=== PATIENT | female | born 1975 | race Caucasian/White ===

== ENCOUNTER 2019-02-17 08:00 | Outpatient (CLI) | payer OTHER ==
[2019-02-17 13:20] LABS: BASOPHILS # (AUTO) 0.1 10^3/uL (0.0-0.1); BASOPHILS % (AUTO) 0.9 %; EOSINOPHILS # (AUTO) 0.2 10^3/uL (0.0-0.7); EOSINOPHILS % (AUTO) 3.4 %; HGB - HEMOGLOBIN 14.2 g/dL (12.0-16.0); LYMPHOCYTES # (AUTO) 2.2 10^3/uL (1.5-3.5); LYMPHOCYTES % (AUTO) 31.3 %; MEAN CORPUSCULAR HEMOGLOBIN 31.3 pg (27.0-31.0); MEAN CORPUSCULAR HGB CONC 33.5 g/dL (32.0-36.0); MEAN CORPUSCULAR VOLUME 93.6 fL (81.0-99.0); MEAN PLATELET VOLUME 8.3 fL (7.9-10.8); MONOCYTES # (AUTO) 0.4 10^3/uL (0.0-1.0); MONOCYTES % (AUTO) 5.4 %; NEUTROPHILS # (AUTO) 4.1 10^3/uL (1.5-6.6); PLT - PLATELET COUNT 251 10^3/uL (130-450); RED BLOOD COUNT 4.53 10^6/uL (4.20-5.40)
[2019-02-17 13:31] LABS: BUN - BLOOD UREA NITROGEN 11 mg/dL (6-20); CALCIUM 8.9 mg/dL (8.5-10.3); CARBON DIOXIDE - CO2 26 mmol/L (21-32); CHLORIDE 103 mmol/L (101-111); CHOL/HDL RATIO 5.8 (<4.4); CHOLESTEROL 220 mg/dL; GFR - MDRD 61 (>89); GLUCOSE 140 mg/dL (70-100); HDL CHOLESTEROL 38 mg/dL; LDL CHOLESTEROL,CALCULATED 137 mg/dL; LDL/HDL RATIO 3.6 (<4.4); SODIUM 138 mmol/L (135-145); VLDL CHOLESTEROL 45 mg/dL
[2019-02-17 13:40] LABS: HB2 TOTAL 15.1 g/dL; HEMOGLOBIN A1C 0.65 g/dL; HEMOGLOBIN A1C % 6.1 % (4.6-6.2)
[2019-02-17 13:43] LABS: THYROID STIMULATING HORMONE 1.05 uIU/mL (0.34-5.60)
[2019-02-17 13:44] LABS: FREE T4 (FREE THYROXINE) 1.15 ng/dL (0.58-1.64)
== END 2019-02-17 23:59 | disposition home or self-care (01) ==
LOC: LAB.N 08:00
PROVIDERS: ATTEND Physician Assistant Medical
DX: Z00.00 Encounter for general adult medical examination without abnormal findings (principal); E03.9 Hypothyroidism, unspecified
CPT/HCPCS: 36415; 80048; 80061; 83036; 83721; 84439; 84443; 85025

== ENCOUNTER 2019-03-02 08:28 | Outpatient (CLI) | payer BC, OTHER ==
--- NOTE | 2019-03-08 15:51 | Mammography Report ---
Reason: SCREENING MAMMO Procedure Date: 03/02/2019 Accession Number: [id number] / [id number] Procedure: MGN - Screening Mammo Dig Bilat CPT Code: FULL RESULT: EXAM: Screening Mammo Dig Bilat DATE: 03/02/2019 8:49 AM CLINICAL HISTORY: Screening examination. TECHNIQUE: (B) - Bilateral CC and MLO views were obtained. COMPARISON: None PARENCHYMAL PATTERN: (A) - The breasts demonstrate scattered fibroglandular densities bilaterally. FINDINGS: There are no suspicious masses, calcifications, or areas of distortion. IMPRESSION: Negative examination. BI-RADS category 1. RECOMMENDATION: (ANNUAL) - Recommend routine annual screening mammography. BI-RADS CATEGORY: (1) - Negative. STANDARD QUALIFYING STATEMENTS: 1. This examination was reviewed with the aid of Computer-Aided Detection (CAD). 2. A negative or benign imaging report should not preclude biopsy if clinically suspicious findings are present. 3. Dense breasts may obscure an underlying neoplasm. 4. This examination was reviewed without the aid of 3D breast imaging (tomosynthesis).
== END 2019-03-02 08:29 | disposition home or self-care (01) ==
LOC: DI.N 08:28
PROVIDERS: ATTEND Physician Assistant Medical
DX: Z12.31 Encounter for screening mammogram for malignant neoplasm of breast (principal)
CPT/HCPCS: 77067

== ENCOUNTER 2019-09-08 10:31 | Outpatient (CLI) | payer BC | END 2019-09-08 10:32 | disposition home or self-care (01) | LOC: NS 10:31 | PROVIDERS: ATTEND Physician Assistant Medical | DX: Z71.3 Dietary counseling and surveillance (principal); R73.03 Prediabetes; E78.5 Hyperlipidemia, unspecified; E66.9 Obesity, unspecified; Z68.37 Body mass index [BMI] 37.0-37.9, adult | CPT/HCPCS: 97802 ==

== ENCOUNTER 2019-09-26 15:29 | Outpatient (CLI) | payer BC | END 2019-09-26 15:30 | disposition home or self-care (01) | LOC: NS 15:29 | PROVIDERS: ATTEND Physician Assistant Medical | DX: Z71.3 Dietary counseling and surveillance (principal); E78.5 Hyperlipidemia, unspecified; R73.03 Prediabetes; E66.9 Obesity, unspecified; Z68.37 Body mass index [BMI] 37.0-37.9, adult | CPT/HCPCS: 97803 ==

== ENCOUNTER 2020-05-30 08:58 | Outpatient (CLI) | payer BC ==
[2020-05-30 11:43] LABS: BASOPHILS # (AUTO) 0.1 10^3/uL (0.0-0.1); BASOPHILS % (AUTO) 0.9 %; EOSINOPHILS # (AUTO) 0.3 10^3/uL (0.0-0.7); EOSINOPHILS % (AUTO) 3.4 %; HGB - HEMOGLOBIN 14.6 g/dL (12.0-16.0); LYMPHOCYTES # (AUTO) 2.4 10^3/uL (1.5-3.5); LYMPHOCYTES % (AUTO) 30.4 %; MEAN CORPUSCULAR HEMOGLOBIN 30.9 pg (27.0-31.0); MEAN CORPUSCULAR HGB CONC 32.6 g/dL (32.0-36.0); MEAN CORPUSCULAR VOLUME 94.9 fL (81.0-99.0); MEAN PLATELET VOLUME 9.6 fL (7.9-10.8); MONOCYTES # (AUTO) 0.5 10^3/uL (0.0-1.0); MONOCYTES % (AUTO) 5.9 %; NEUTROPHILS # (AUTO) 4.7 10^3/uL (1.5-6.6); NEUTROPHILS % (AUTO) 58.9 %; PLT - PLATELET COUNT 278 10^3/uL (130-450); RED BLOOD COUNT 4.72 10^6/uL (4.20-5.40); RED CELL DISTRIBUTION WIDTH 12.9 % (12.0-15.0)
[2020-05-30 12:08] LABS: ALBUMIN 4.1 g/dL (3.2-5.5); ALBUMIN/GLOBULIN RATIO 1.2 (1.0-2.2); ALKALINE PHOSPHATASE 67 IU/L (42-121); ALT ALANINE AMINOTRANSFERASE 34 IU/L (10-60); AST ASPARTATE AMINOTRANSFERASE 29 IU/L (10-42); BILIRUBIN,TOTAL 0.3 mg/dL (0.2-1.0); BUN - BLOOD UREA NITROGEN 9 mg/dL (6-20); CALCIUM 9.2 mg/dL (8.5-10.3); CARBON DIOXIDE - CO2 26 mmol/L (21-32); CHLORIDE 103 mmol/L (101-111); CHOL/HDL RATIO 5.8 (<4.4); CHOLESTEROL 216 mg/dL; CREATININE 0.9 mg/dL (0.4-1.0); GLUCOSE 119 mg/dL (70-100); HDL CHOLESTEROL 37 mg/dL; LDL CHOLESTEROL,CALCULATED 142 mg/dL; LDL/HDL RATIO 3.8 (<4.4); SODIUM 136 mmol/L (135-145); TOTAL PROTEIN 7.4 g/dL (6.7-8.2); VLDL CHOLESTEROL 37 mg/dL
[2020-05-30 12:49] LABS: HEMOGLOBIN A1C 0.64 g/dL; HEMOGLOBIN A1C % 6.1 % (4.6-6.2)
== END 2020-05-30 23:59 | disposition home or self-care (01) ==
LOC: LAB.WCP 08:58
PROVIDERS: ATTEND Physician Assistant
DX: R73.03 Prediabetes (principal); E03.9 Hypothyroidism, unspecified; E78.5 Hyperlipidemia, unspecified
CPT/HCPCS: 36415; 80053; 80061; 83036; 83721; 84443; 85025

== ENCOUNTER 2020-07-04 07:00 | Outpatient (CLI) | payer BC | END 2020-07-04 07:01 | disposition home or self-care (01) | LOC: LAB.R 07:00 | PROVIDERS: ATTEND Physician Assistant | DX: N39.0 Urinary tract infection, site not specified (principal) | CPT/HCPCS: 36415; 81599; 86592; 86695; 86696; 86803; 87077; 87086; 87181; 87389; 87491; 87591; 87661 ==

== ENCOUNTER 2020-07-04 15:42 | Outpatient (CLI) | payer BC ==
[2020-07-05 12:34] LABS: HIV AG/AB 4TH GEN NON-REACTIVE (NON-REACTIVE)
[2020-07-05 13:59] LABS: HEPATITIS C ANTIBODY NON-REACTIVE (NON-REACTIVE)
[2020-07-06 12:42] LABS: HSV 1 IGG TYPE SPECIFIC AB 33.7 index; HSV 2 IGG TYPE SPECIFIC AB 9.7 index
== END 2020-07-04 23:59 | disposition home or self-care (01) ==
LOC: LAB.WCP 15:42
PROVIDERS: ATTEND Physician Assistant
DX: Z11.3 Encounter for screening for infections with a predominantly sexual mode of transmission (principal); N39.0 Urinary tract infection, site not specified
CPT/HCPCS: 36415; 81599; 86695; 86696; 86803; 87086; 87389; 87491; 87591; 87661

== ENCOUNTER 2020-07-05 05:30 | Outpatient (CLI) | payer BC ==
[2020-07-05 21:11] LABS: TRICHOMONAS VAGINALIS DNA NEGATIVE (NEGATIVE)
== END 2020-07-05 23:59 | disposition home or self-care (01) ==
LOC: LAB.WCP 05:30
PROVIDERS: ATTEND Physician Assistant
DX: Z11.3 Encounter for screening for infections with a predominantly sexual mode of transmission (principal)
CPT/HCPCS: 87491; 87591; 87661

== ENCOUNTER 2020-07-05 07:00 | Outpatient (CLI) | payer BC | END 2020-07-05 23:59 | disposition home or self-care (01) | LOC: LAB.R 07:00 | PROVIDERS: ATTEND Physician Assistant | DX: R19.7 Diarrhea, unspecified (principal) | CPT/HCPCS: 81599; 87045; 87046; 87177; 87209; 87427; 87493 ==

== ENCOUNTER 2020-09-10 08:58 | Outpatient (CLI) | payer BC | END 2020-09-10 23:59 | disposition home or self-care (01) | LOC: LAB.R 08:58 | PROVIDERS: ATTEND Physician Assistant | DX: R19.7 Diarrhea, unspecified (principal) | CPT/HCPCS: 81599; 87045; 87046; 87177; 87209; 87427; 87493 ==

== ENCOUNTER 2021-06-14 08:00 | Outpatient (CLI) | payer BC ==
[2021-06-14 12:29] LABS: BILIRUBIN,URINE NEGATIVE (NEGATIVE); GLUCOSE, URINE (UA) NEGATIVE (NEGATIVE); KETONES,URINE (UA) NEGATIVE (NEGATIVE); LEUKOCYTE ESTERASE, URINE NEGATIVE (NEGATIVE); NITRITE,URINE NEGATIVE (NEGATIVE); OCCULT BLOOD,URINE NEGATIVE (NEGATIVE); PROTEIN,URINE NEGATIVE (NEGATIVE); UROBILINOGEN,URINE 0.2 (NORMAL) E.U./dL (NORMAL)
[2021-06-14 12:31] LABS: ALBUMIN 4.3 g/dL (3.2-5.5); ALBUMIN/GLOBULIN RATIO 1.3 (1.0-2.2); ALKALINE PHOSPHATASE 79 IU/L (42-121); ALT ALANINE AMINOTRANSFERASE 48 IU/L (10-60); AST ASPARTATE AMINOTRANSFERASE 39 IU/L (10-42); BILIRUBIN,TOTAL 0.7 mg/dL (0.2-1.0); BUN - BLOOD UREA NITROGEN 7 mg/dL (6-20); CALCIUM 9.3 mg/dL (8.5-10.3); CARBON DIOXIDE - CO2 25 mmol/L (21-32); CHLORIDE 103 mmol/L (101-111); CHOL/HDL RATIO 5.5 (<4.4); CHOLESTEROL 262 mg/dL; GFR - MDRD 60 (>89); GLUCOSE 125 mg/dL (70-100); HDL CHOLESTEROL 48 mg/dL; LDL CHOLESTEROL,CALCULATED 185 mg/dL; LDL/HDL RATIO 3.9 (<4.4); POTASSIUM 3.9 mmol/L (3.5-5.0); SODIUM 138 mmol/L (135-145); TOTAL PROTEIN 7.6 g/dL (6.7-8.2); TRIGLYCERIDES 147 mg/dL; VLDL CHOLESTEROL 29 mg/dL
[2021-06-14 12:34] LABS: CLARITY,URINE CLOUDY (CLEAR); ESTIMATED AVERAGE GLUCOSE 137 mg/dL (70-100); HEMOGLOBIN A1c% 6.4 % (4.27-6.07)
[2021-06-14 12:40] LABS: BASOPHILS # (AUTO) 0.1 10^3/uL (0.0-0.1); BASOPHILS % (AUTO) 1.3 %; EOSINOPHILS # (AUTO) 0.2 10^3/uL (0.0-0.7); EOSINOPHILS % (AUTO) 3.5 %; HCT - HEMATOCRIT 44.3 % (37.0-47.0); HGB - HEMOGLOBIN 14.5 g/dL (12.0-16.0); LYMPHOCYTES # (AUTO) 1.9 10^3/uL (1.5-3.5); LYMPHOCYTES % (AUTO) 31.2 %; MEAN CORPUSCULAR HEMOGLOBIN 31.9 pg (27.0-31.0); MEAN CORPUSCULAR HGB CONC 32.7 g/dL (32.0-36.0); MEAN CORPUSCULAR VOLUME 97.4 fL (81.0-99.0); MEAN PLATELET VOLUME 9.6 fL (7.9-10.8); MONOCYTES # (AUTO) 0.4 10^3/uL (0.0-1.0); MONOCYTES % (AUTO) 6.6 %; NEUTROPHILS # (AUTO) 3.5 10^3/uL (1.5-6.6); NEUTROPHILS % (AUTO) 56.3 %; PLT - PLATELET COUNT 263 10^3/uL (130-450); RED BLOOD COUNT 4.55 10^6/uL (4.20-5.40); RED CELL DISTRIBUTION WIDTH 13.1 % (12.0-15.0); THYROID STIMULATING HORMONE 21.19 uIU/mL (0.34-5.60); WHITE BLOOD COUNT 6.2 x10^3/uL (4.8-10.8)
[2021-06-14 12:42] LABS: FREE T4 (FREE THYROXINE) 0.52 ng/dL (0.58-1.64)
[2021-06-14 13:32] LABS: BACTERIA,URINE Rare /HPF (None Seen); RBC,URINE None Seen /HPF (0-5); SQUAMOUS EPITHELIAL CELL,UR MOD Squamous (<= Few); WBC,URINE 0-3 /HPF (0-5)
[2021-06-14 13:33] LABS: AMORPHOUS SEDIMENT,UR Marked /LPF
== END 2021-06-14 23:59 | disposition home or self-care (01) ==
LOC: LAB.WCP 08:00
PROVIDERS: ATTEND Nurse Practitioner
DX: Z00.01 Encounter for general adult medical examination with abnormal findings (principal); E78.5 Hyperlipidemia, unspecified; E03.9 Hypothyroidism, unspecified; R73.03 Prediabetes
CPT/HCPCS: 36415; 80053; 80061; 81001; 83036; 83721; 84439; 84443; 85025; 87086

== ENCOUNTER 2021-08-21 15:19 | Outpatient (CLI) | payer BC ==
--- NOTE | 2021-08-22 10:47 | Mammography Report ---
BILATERAL DIGITAL SCREENING MAMMOGRAM 3D/2D: 08/21/2021 CLINICAL: Routine screening. Comparison is made to exams dated: 03/02/2019 mammogram - [facility] and 02/28/2016 m ammogram - [facility]. The tissue of both breasts is heterogeneously dense. This may l ower the sensitivity of mammography. No significant masses, calcifications, or other findings are seen in either breast. There has been no significant interval change. IMPRESSION: NEGATIVE There is no mammographic evidence of malignancy. A 1 year screening mammogram is recommended. This exam was interpreted at Station ID: [id number]. NOTE: For mammograms, a report in lay terms will be sent to the patient. Approximately 15% of breast malignancies will not be visualized mammographically. In the management of a palpable breast mass, a negative mammogram must not discourage biopsy of a clinically suspicious lesion. Electronically Signed By: Ladarius Youssef acr/penrad:08/21/2021 16:57:43 ACR BI-RADS Category 1: Negative [id number] PARENCHYMAL PATTERN: (D) - The breast(s) demonstrate(s) heterogeneously dense fibroglandular herman shaikh. BI-RADS CATEGORY: (1) - 1 RECOMMENDATION: (ANNUAL) - Recommend routine annual screening mammography. [id number] 1 year screening LATERALITY: (B)
== END 2021-08-21 15:20 | disposition home or self-care (01) ==
LOC: DI.N 15:19
PROVIDERS: ATTEND Nurse Practitioner
DX: Z12.31 Encounter for screening mammogram for malignant neoplasm of breast (principal)

== ENCOUNTER 2021-09-20 12:47 | Outpatient (CLI) | payer BC | END 2021-09-20 12:48 | disposition home or self-care (01) | LOC: LAB 12:47 | PROVIDERS: ATTEND Internal Medicine Gastroenterology | DX: A04.72 Enterocolitis due to Clostridium difficile, not specified as recurrent (principal) | CPT/HCPCS: 83630; 87493 ==

== ENCOUNTER 2021-11-19 10:53 | Day surgery (SDC) | payer BC ==
[2021-11-19] MEDS ORDERED: PROPOFOL 500 MG/50 ML 500 MG/50 ML VIAL ONE (11:33)
--- NOTE | 2021-11-19 11:39 | ANESTHESIA ---
Pre-Anesthesia VS, & Labs - Diagnosis abdominal pain - Procedure colonoscopy Height: 5 ft 6 in Weight (kg): 105.9 kg Body Mass Index: 37.6 BMI Classification: Obese - NPO >8 hours - Is Patient ?: No (pt refused hcg, denies potential) Home Medications and Allergies Home Medications: Ambulatory Orders Levothyroxine [Synthroid] 75 mcg PO QDAC 11/18/21 buPROPion [Wellbutrin Xl] 150 mg PO DAILY 11/18/21 Levothyroxine [Synthroid] 75 mcg PO QDAC 11/18/21 buPROPion [Wellbutrin Xl] 150 mg PO DAILY 11/18/21 Allergies/Adverse Reactions: Allergies Allergy/AdvReac Type Severity Reaction Status Date / Time salmon oil Allergy Unknown Verified 11/19/21 11:22 Anes History & Medical History - Anesthetic History Anesthesia Complications: reports: No previous complications - Medical History Cardiovascular: reports: None Pulmonary: reports: None Endocrine/Autoimmune: reports: HyPOthyroidism History of Cancer?: No - Surgical History General: reports: Cholecystectomy Orthopedic: reports: Other (foot) Exam General: Alert, Oriented x3 Dental: WNL Mallampati classification: II Thyromental Distance: greater than 6 cm Respiratory: Lungs clear Cardiovascular: Regular rate Plan Anesthesia Type: Total IV Consent for Procedure(s) Verified and Reviewed: Yes Code Status: Attempt Resuscitation ASA classification: 2-Mild systemic disease Is this case an emergency?: No
[2021-11-19] MEDS ORDERED: PROPOFOL 200 MG/20 ML VIAL IVP ONE (12:11)
[2021-11-19] MEDS ORDERED: LACTATED RINGERS 1,000 ML IV ONE (12:15)
[2021-11-19 12:31] VITALS: BP 130/94
--- NOTE | 2021-11-19 14:39 | ANESTHESIA POST OP EVALUATION ---
Anesthesia Post Eval - Post Anesthesia Eval Vitals: Last Vital Signs Temp 36.8 C 11/19/21 12:15 Pulse 88 11/19/21 12:30 Resp 12 11/19/21 12:30 BP 130/94 H 11/19/21 12:30 Pulse Ox 98 11/19/21 12:30 CV Function Including HR & BP: Stable Pain Control: Satisfactory Nausea & Vomiting: Negative Mental Status: Baseline Respiratory Status: Airway Patent Hydration Status: Satisfactory Anesthesia Complications: None
== END 2021-11-19 10:54 | disposition home or self-care (01) ==
LOC: SDS 10:53
PROVIDERS: ATTEND Surgery
PROC: 0DBE8ZX Excision of Large Intestine, Via Natural or Artificial Opening Endoscopic, Diagnostic (ICD-10-PCS; 2021-11-19)
PROC: 0DBP8ZX Excision of Rectum, Via Natural or Artificial Opening Endoscopic, Diagnostic (ICD-10-PCS; 2021-11-19)
PROC: 0DBB8ZX Excision of Ileum, Via Natural or Artificial Opening Endoscopic, Diagnostic (ICD-10-PCS; 2021-11-19)
PROC: 0DBH8ZX Excision of Cecum, Via Natural or Artificial Opening Endoscopic, Diagnostic (ICD-10-PCS; principal; 2021-11-19 12:15)
DX: R10.33 Periumbilical pain (principal); R19.7 Diarrhea, unspecified; K64.8 Other hemorrhoids; K62.1 Rectal polyp; R06.83 Snoring; E66.9 Obesity, unspecified; F17.210 Nicotine dependence, cigarettes, uncomplicated; Z68.39 Body mass index [BMI] 39.0-39.9, adult
CPT/HCPCS: 45380; 81599; 83630; 87015; 87177; 87209; 87272; 87329; 87493; J7120; 87045; 87046

== ENCOUNTER 2021-12-13 13:38 | Outpatient (CLI) | payer BC | END 2021-12-13 13:39 | disposition home or self-care (01) | LOC: LAB.N 13:38 | PROVIDERS: ATTEND Nurse Practitioner | DX: M25.552 Pain in left hip (principal) | CPT/HCPCS: 36415; 85651; 86140 ==

== ENCOUNTER 2021-12-13 13:44 | Outpatient (CLI) | payer BC ==
--- NOTE | 2021-12-13 17:14 | XRAY Report ---
PROCEDURE: Hip w/Pelvis 2-3V LT INDICATIONS: LEFT HIP JOINT PAIN TECHNIQUE: AP pelvis with lateral view(s) of the left hip(s). COMPARISON: None FINDINGS: Bones: No fractures or dislocations. Pelvic ring appears intact. No suspicious bony lesions. Soft tissues: The visualized bowel gas pattern is normal. No suspicious soft tissue calcifications. IMPRESSION: No visualized acute fracture or dislocation. However, occult injury cannot be excluded. Recommend short interval imaging follow-up in 7-10 days as clinically indicated for additional evalua tion. Reviewed by: Summer Conner MD on 12/13/2021 5:13 PM PST Approved by: Summer Conner MD on 12/13/2021 5:13 PM PST Station ID: [id number]
== END 2021-12-13 13:45 | disposition home or self-care (01) ==
LOC: DI.N 13:44
PROVIDERS: ATTEND Nurse Practitioner
DX: M25.552 Pain in left hip (principal)
CPT/HCPCS: 36415; 85651; 86140

== ENCOUNTER 2022-08-04 08:00 | Outpatient (CLI) | payer BC | END 2022-08-04 23:59 | disposition home or self-care (01) | LOC: LAB.N 08:00 | PROVIDERS: ATTEND Physician Assistant | DX: L72.0 Epidermal cyst (principal) | CPT/HCPCS: 87070; 87205 ==

== ENCOUNTER 2022-08-15 08:28 | Outpatient (CLI) | payer BC ==
[2022-08-15 09:11] VITALS: BP 136/78
--- NOTE | 2022-08-15 09:11 | SLEEP CARE CONSULTATION ---
Information from patient questionnaire entered by Ashley Harris. I have reviewed and concur with the information entered by Ashley Harris. This document represents the service I personally performed and the decisions made by me, Mami Garzon ARNP. History of Present Illness Service Date and Time: 08/15/2022827 Reason for Visit: New patient Chief Complaint: reports: Insomnia, Unrefreshed sleep, Snoring Date of Onset: 9 months Usual bedtime: 9 pm Time it takes to fall asleep: 2 hours Snores at night: Yes Observed to quit breathing while asleep: No Sleeps alone due to snoring: No Number of times waking at night: 2 Reasons for waking at night: reports: Bathroom. denies: Choking, Gasping for air Toss, Turn, or Twitch while sleeping: Yes Recalls having dreams: Yes Usually gets out of bed at: 6 am Feels refreshed in the morning: Yes (sometimes not) Morning headache: No Sleepy or fatigued during the day: Yes Ever fallen asleep while driving: No Takes day naps: Yes ( mostly) Dreams during day naps: Yes (sometimes) Prior sleep studies: No Additional HPI information: I had the pleasure of seeing AMBER BANKS today regarding the possibility of her having a sleep disorder. Her current complaint is insomnia. She states she loves naps but she has a hard time falling asleep at night. She states it can take 2-3 hours to fall asleep. She will read in bed until able to go to sleep. She has tried 5-6 medications to help her fall asleep and stay asleep but they did not help or have side effects were not good. She sleeps in 3-4 hours increments at a time. She states her son tells her she snores but no pauses in breathing. She sometimes will feel "wired" and ready to go with only 3 hours sleep. She thinks most of the time she wakes up feeling rested but after examining her sleep diary she was not as rested in the last week. Patient has back pain from recent "cysts" on her back requiring surgery yesterday. She states she will wake up a couple times a night and usually can go back to sleep. She denies racing thoughts keeping her awake. She denies waking up choking or gasping for air. 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 Patient is Single and lives in . Have you smoked in the past 12 months: Yes Cigarettes per day (20/pack): 20 Years of smokin Smoking Pack Years: 30.0 Alcohol use: Yes Alcohol amount and frequency: rarely Caffeine use: Yes Caffeine amount and frequency: 1 cup coffee daily Family History Family history of sleep disordered breathing: No Allergies and Home Medications Known drug allergies: No Drug allergies reviewed: Yes (NKDA) Home medication list reviewed: Yes Allergy and home medication list: Allergies salmon oil Allergy (Verified 11/19/21 11:22) Unknown Medications: Levothyroxine 0.150 mg Venlafaxine 225 mg Metformin ER 500 mg, 1-2 times a day Review of Systems Cardiovascular: denies: high blood pressure Gastrointestinal: denies: heartburn Neurological: denies: headaches, head trauma Psychiatric: reports: anxiety, depression Ear/Nose/Throat: denies: tonsillectomy Endocrine: reports: thyroid disease Immunologic: reports: sneezing, allergies to food or environment (salmon oil) Physical Exam Vital signs obtained and entered by: ISHAN LEIGH Blood Pressure: 136/78 (LEFT ARM ) Cuff size: regular Heart Rate: 101 O2 Saturation: 95 Height: 5 ft 6 in Weight: 221 lb Body Mass Index: 35.6 BMI Classification: Obese Neck circumference: 18 (INCHES) Mouth and throat: narrow oropharynx Soft palate: long Hard palate: normal Uvula: normal Uvula visualization: 25% Mallampati Class III Tongue: enlarged in size with teeth bustos on lateral edges Tonsils: small Neck: normal w/o lymphadenopathy or thyromegaly Heart: regular rate and rhythm Lungs: clear bilaterally Impression and Plan 1. Suspected Obstructive Sleep Apnea-Hypopnea Syndrome, as suggested by a history of irregular snoring, unrefreshed sleep, and insomnia. Narrow oropharynx and obesity are common predisposing factors for obstructive sleep apnea-hypopnea syndrome. I recommend proceeding to polysomnography to confirm the diagnosis and to assess severity. If the patient has significant sleep disordered breathing, a manual CPAP titration study will also be performed to find the optimal treatment pressure. I informed the patient of what the sleep studies involve and after some discussion, obtained agreement to proceed. The pathophysiology of obstructive sleep apnea-hypopnea syndrome was discussed with the patient and health risks of cardiovascular and cerebrovascular disease if not treated. Risks of drowsy driving discussed in detail and patient advised to avoid long distance driving and to parts puller at the first sign of drowsiness. Patient agreed to plan. * Schedule polysomnography * Avoid long distance driving or driving when feeling sleepy. * Avoid alcohol, sedative and muscle relaxant around bedtime. * Attempt to lose weight. * Review instructions provided by trained office staff on how to prepare for the sleep study. * Return for follow-up after sleep study completed. Counseling Topics: Weight loss health impact Visit Type: In Office Time Spent with Patient (minutes): 30 Provider Statement: I spent 100% of the Face to Face Visit with the patient with greater than 50% spent counseling the patient and coordination of care.
== END 2022-08-15 08:29 | disposition home or self-care (01) ==
LOC: SC 08:28
PROVIDERS: ATTEND Nurse Practitioner Family
DX: G47.00 Insomnia, unspecified (principal); R06.83 Snoring; G47.8 Other sleep disorders; E11.9 Type 2 diabetes mellitus without complications; F32.A Depression, unspecified; F17.210 Nicotine dependence, cigarettes, uncomplicated; E66.9 Obesity, unspecified; Z68.35 Body mass index [BMI] 35.0-35.9, adult
CPT/HCPCS: 99203; 99212

== ENCOUNTER 2022-09-08 09:47 | Outpatient (CLI) | payer BC ==
[2022-09-08 14:00] LABS: ESTIMATED AVERAGE GLUCOSE 123 mg/dL (70-100); HEMOGLOBIN A1c% 5.9 % (4.27-6.07)
== END 2022-09-08 09:48 | disposition home or self-care (01) ==
LOC: LAB.N 09:47
PROVIDERS: ATTEND Nurse Practitioner
DX: E55.9 Vitamin D deficiency, unspecified (principal); E11.9 Type 2 diabetes mellitus without complications
CPT/HCPCS: 36415; 82306; 82652; 83036

== ENCOUNTER 2022-09-16 14:23 | Outpatient (CLI) | payer BC | END 2022-09-16 14:24 | disposition home or self-care (01) | LOC: SC 14:23 | PROVIDERS: ATTEND Nurse Practitioner Family | DX: G47.33 Obstructive sleep apnea (adult) (pediatric) (principal); R09.02 Hypoxemia | CPT/HCPCS: 95806 ==

== ENCOUNTER 2022-10-15 15:31 | Outpatient (CLI) | payer BC ==
--- NOTE | 2022-10-15 15:59 | SLEEP CARE CONSULTATION ---
Information from patient questionnaire entered by Emily Sheriff. I have reviewed and concur with the information entered by Emily Sheriff. This document represents the service I personally performed and the decisions made by me, Mami Garzon ARNP. History of Present Illness Service Date and Time: 10/15/2022 1531 Initial [place] Sleepiness Scale score: 3 (08/14/22) Current [place] Sleepiness Scale score: 5 (10/15/2022) Additional HPI information: AMBER BANKS returns for follow up and results of the recently performed home sleep study. I explained the pathophysiology behind obstructive sleep apnea. We then spent quite a bit of time discussing different treatment options. For mild obstructive sleep apnea, surgery and oral appliance are alternatives to nasal CPAP therapy but in moderate or severe cases, nasal CPAP is the most effective and reliable treatment. I reviewed the impact of weight changes on sleep apnea and strongly recommended losing weight. After some discussion, the patient opted to go with the nasal CPAP therapy. Nasal autoCPAP set at 4-15 cmH20 will be ordered with rationale explained. A manual titration study will be ordered if unable to find optimal pressure with office adjustments. I explained how CPAP machine works and what to expect when using the machine. Using CPAP every night in order to get used to it was emphasized. Patient advised to put CPAP mask on before getting into bed so as not to fall asleep without CPAP. To assist acclimation to CPAP use, it could also be used for a short time during day while reading or watching TV. The patient was instructed to call the CPAP supplier to discuss any mechanical problem that may occur. If the mask given is uncomfortable or is difficult to keep on through the night even with adjustment, contact the CPAP supplier as many will replace with another mask style if notified before 30 days. If snoring or perceives is not getting enough air or too much air from the machine, notify this office. Patient was cautioned about risks of drowsy driving until sleepiness symptoms resolve. Sleep Study - Results Type of Sleep Study: Home sleep study (COMPLETED 09/16/2022) Prior sleep studies: No Polysomnography/Home Sleep Study results: Physician Impression: The quality of the study is good. The length of the study is adequate (> 240 minutes). Please also see the tabulated and graphic data. 1. Obstructive Sleep Apnea-Hypopnea (ICD-10 G47.33), mild, with an AHI of 9.4/hr and nancy SaO2 of 81%. During the study, the patient had 22 apneas (22 obstructive, 0 central, 0 mixed) and 55 hypopneas. The longest episode lasted 90.5 seconds. The patient did not sleep supine during this study. 2. Hypoxemia (ICD-10 R09.02), mild, with the lowest oxygen saturation of 81 % and 11.4 minutes with SaO2 under 90%. Baseline oxygen saturation was normal (Average oxygen saturation was 92%). Allergies and Home Medications Drug allergies reviewed: Yes (NKDA) Home medication list reviewed: Yes (no changes) Review of Systems Review of systems same as previous: Yes (no changes) Physical Exam Vital signs obtained and entered by: EMILY Paris MA Blood Pressure: 140/88 (LEFT ARM) Cuff size: regular Heart Rate: 85 O2 Saturation: 98 Height: 5 ft 6 in Weight: 229 lb 9.6 oz Body Mass Index: 37.0 BMI Classification: Obese Impression and Plan 1. Obstructive Sleep Apnea-Hypopnea Syndrome, mild, with lowest oxygen saturation of 81%. Obviously this is the cause of the patients symptoms of unre freshed sleep, and excessive daytime sleepiness. Positive pressure therapy could benefit diabetes, hypertension, anxiety and depression. As mentioned above, the patient will be started on nasal autoCPAP therapy with pressure set at 4-15 cmH2 O. Compliance guidelines also reviewed. A copy of compliance guidelines will be given for reference at check out. Because the apnea is more severe supine, I instructed to avoid sleeping supine using pillow positioning until able to start CPAP use. 2. Obesity, unspecified. Currently patients BMI is 37.0. Obesity increases the risk of apnea, CPAP pressure requirements and overall health risks especially cardiovascular and diabetes. Thus patient is advised to lose weight. * Nasal auto CPAP therapy, pressure at 4-15 cm H2O. * Attempt to lose weight. * Avoid alcohol consumption near bedtime. * Avoid supine sleep until using CPAP. * The patient is again cautioned about driving until sleepiness completely resolves. * Return one month after CPAP obtained. I will assess response to therapy and compliance at that time. Counseling Topics: Sleeping position, Weight loss health impact Visit Type: In Office Time Spent with Patient (minutes): 22 Provider Statement: I spent 100% of the Face to Face Visit with the patient with greater than 50% spent counseling the patient and coordination of care.
[2022-10-15 16:00] VITALS: BP 140/88
== END 2022-10-15 15:32 | disposition home or self-care (01) ==
LOC: SC 15:31
PROVIDERS: ATTEND Nurse Practitioner Family
DX: G47.33 Obstructive sleep apnea (adult) (pediatric) (principal); E66.9 Obesity, unspecified; Z68.37 Body mass index [BMI] 37.0-37.9, adult
CPT/HCPCS: 99212; 99213

== ENCOUNTER 2023-01-02 15:58 | Outpatient (CLI) | payer BC ==
[2023-01-02 16:24] VITALS: BP 138/78
--- NOTE | 2023-01-02 16:24 | SLEEP CARE CONSULTATION ---
Information from patient questionnaire entered by Russell Sheriff. I have reviewed and concur with the information entered by Russell Sheriff. This document represents the service I personally performed and the decisions made by , Mami Garzon ARNP. History of Present Illness Service Date and Time: 01/02/2023 1558 Previous diagnosis: Mild, Obstructive Sleep Apnea-Hypopnea Syndrome AHI: 9.4 Reason for follow up: first compliance Equipment type: CPAP (RESMED Airsense 10, s/u 10/2022 SD CARD NEEDED FOR DOWNLOAD AND PRESSURE CHANGES) Equipment obtained from: Other ([facility]) Mask style: Nasal pillows Mask brand: Resmed (AirFit P10) Backup mask available: Yes (other mask) Prior sleep studies: No Type of Sleep Study: Home sleep study (COMPLETED 09/16/2022) HPI additional information: AMBER BANKS was diagnosed to have mild, AHI 9.4, obstructive sleep apnea- hypopnea syndrome and returned today for CPAP therapy first compliance follow- up. Sleep Study - Results Type of Sleep Study: Home sleep study (COMPLETED 09/16/2022) Prior sleep studies: No CPAP Compliance Data - Data Reviewed with Patient Average duration of nightly device use: 7 hours 1 minute Compliance rate %: 51 (41/67 days used) Current pressure setting (cmH2O): 4-15 (median 8.0, avg 10.3, max 11.4) Average residual AHI: 0.9 Central apnea: 0.1 Obstructive apnea: 0.5 Average large leak: 2.7 LPM Subjective Missed days of use due to: reports: mask issues, illness (has had a cold with congestion limiting use) Patient concerns: reports: mask discomfort, air blowing in eyes, nasal congestion (recently sick; not related to CPAP). denies: aerophagia, mask leak noise, condensation in mask/hose, dry mouth, nose, throat, epistaxis Observed to snore while using device: No Current pressure setting perceived as: comfortable On therapy, patient: reports: other (no change in restfulness at this) Initial [place] Sleepiness Scale score: 3 (08/14/22) Current [place] Sleepiness Scale score: 6 (01/02/23) Allergies and Home Medications Drug allergies reviewed: Yes (salmon oil) Home medication list reviewed: Yes (no changes) Review of Systems Review of systems same as previous: Yes (no changes) Physical Exam Vital signs obtained and entered by: RUSSELL Paris MA Blood Pressure: 138/78 (LEFT ARM) Cuff size: regular Heart Rate: 75 O2 Saturation: 95 Height: 5 ft 6 in Weight: 232 lb 12.8 oz Body Mass Index: 37.5 BMI Classification: Obese Impression and Plan 1. Obstructive Sleep Apnea-Hypopnea Syndrome, mild, with poor treatment compliance and good apnea control. She had a cold with nasal congestion and was unable to tolerate the mask. She is switching from a nasal cushion over the nose and nasal pillows mask. She thinks she likes the ResMed Airfit P10 nasal pillows better overall. She was encouraged to increase time in mask since she is doing better and to increase compliance to 70% or better. She voiced understanding and agreement. The patients pressure will be changed to autoCPAP 10-12 cmH20 to reflect pressures being used. Patient advised to contact me if pressure change is uncomfortable so that it can be adjusted. Goals for apnea control discussed. Patient's apnea severity and rationale for treatment to reduce apnea, improve sleep quality and reduce cardiovascular and cerebrovascular events was reviewed. I also reviewed the benefit of consistent device use of CPAP for hypertension, diabetes, depression and anxiety. 2. Obesity, unspecified. Currently patients BMI is 37.5. Obesity increases the risk of apnea, CPAP pressure requirements and overall health risks especially cardiovascular and diabetes. Thus patient is advised to lose weight. * Change auto CPAP pressure to 10-12 cmH2O * Notify me if snoring with mask or feeling that the pressure is too much or too little * Attempt to lose weight * Call this office if any problems using CPAP * Return for follow up in 1-2 months, or sooner if concerns arise Counseling Topics: Spare mask, Weight loss health impact Visit Type: In Office Time Spent with Patient (minutes): 15 Provider Statement: I spent 100% of the Face to Face Visit with the patient with greater than 50% spent counseling the patient and coordination of care.
== END 2023-01-02 15:59 | disposition home or self-care (01) ==
LOC: SC 15:58
PROVIDERS: ATTEND Nurse Practitioner Family
DX: G47.33 Obstructive sleep apnea (adult) (pediatric) (principal); E66.9 Obesity, unspecified; Z68.37 Body mass index [BMI] 37.0-37.9, adult
CPT/HCPCS: 99212

== ENCOUNTER 2023-02-20 16:04 | Outpatient (CLI) | payer BC ==
[2023-02-20 16:31] VITALS: BP 140/88
--- NOTE | 2023-02-20 16:31 | SLEEP CARE CONSULTATION ---
Information from patient questionnaire entered by Russell Sheriff. I have reviewed and concur with the information entered by Russell Sheriff. This document represents the service I personally performed and the decisions made by , Mami Garzon ARNP. History of Present Illness Service Date and Time: 02/20/2023 1604 Previous diagnosis: Mild, Obstructive Sleep Apnea-Hypopnea Syndrome AHI: 9.4 Reason for follow up: one month (F/U) Equipment type: CPAP (RESMED Airsense 10, s/u 10/2022 SD CARD NEEDED FOR DOWNLOAD AND PRESSURE CHANGES) Equipment obtained from: Other ([facility]) Mask style: Nasal pillows Backup mask available: Yes (other mask) Last cushion change: this week Prior sleep studies: No Type of Sleep Study: Home sleep study (COMPLETED 09/16/2022) HPI additional information: AMBER BANKS was diagnosed to have mild, AHI 9.4, obstructive sleep apnea- hypopnea syndrome and returned today for CPAP therapy one month follow-up. Sleep Study - Results Type of Sleep Study: Home sleep study (COMPLETED 09/16/2022) Prior sleep studies: No CPAP Compliance Data - Data Reviewed with Patient Average duration of nightly device use: 6 hours 23 minutes Compliance rate %: 83 (/30 days used) Current pressure setting (cmH2O): 10-12 Average residual AHI: 1.2 Central apnea: 0.4 Obstructive apnea: 0.4 Average large leak: 9.4 lpm Subjective Patient concerns: reports: mask discomfort, dry mouth, nose, throat (dry mouth, has chronic issue). denies: aerophagia, air blowing in eyes, mask leak noise, condensation in mask/hose, nasal congestion, epistaxis Observed to snore while using device: No Current pressure setting perceived as: comfortable On therapy, patient: denies: sleeping better, more rested overall, drowsiness while driving Initial [place] Sleepiness Scale score: 3 (08/14/22) Current [place] Sleepiness Scale score: 7 (02/20/23) Allergies and Home Medications Known drug allergies: Yes (salmon oil) Drug allergies reviewed: Yes Home medication list reviewed: Yes (no changes) Allergy and home medication list: Allergies salmon oil Allergy (Verified 02/19/23 17:19) Unknown Review of Systems Review of systems same as previous: Yes (no changes) Physical Exam Vital signs obtained and entered by: RUSSELL Paris MA Blood Pressure: 140/88 (LEFT ARM) Cuff size: regular Heart Rate: 87 O2 Saturation: 96 Height: 5 ft 6 in Weight: 235 lb 6.4 oz Weight change since last visit: 3 lb gain Body Mass Index: 38.0 BMI Classification: Obese Impression and Plan 1. Obstructive Sleep Apnea-Hypopnea Syndrome, mild, with good treatment compliance and good apnea control. Patient does not yet feel more refreshed in the mornings or have less fatigue during the day. She averages 6.5 hours of sleep nightly. Most people require 7-9 hours of sleep for optimal mental and physical function. Less than 5-6 hours of sleep consistently can contribute to health risks and mortality. Thus patient is advised to strive for a minimum of 7 hours of sleep. She voiced understanding. She is still trying to get used to her mask and wear it every night. She has significant improvement of her sleep apnea and her pressure setting is comfortable overall. Patient's apnea severity and rationale for treatment to reduce apnea, improve sleep quality and reduce cardiovascular and cerebrovascular events was reviewed. I also reviewed the benefit of consistent device use of CPAP for hypertension, diabetes, depression and anxiety. 2. Obesity, unspecified. Currently patients BMI is 38.0. Obesity increases the risk of apnea, CPAP pressure requirements and overall health risks especially cardiovascular and diabetes. Thus patient is advised to lose weight. * Continue auto CPAP pressure at 10-12 cmH2O * Notify me if snoring with mask or feeling that the pressure is too much or too little * Attempt to lose weight * Call this office if any problems using CPAP * Return for follow up in 3 months, or sooner if concerns arise Counseling Topics: Spare mask, Weight loss health impact Visit Type: In Office Time Spent with Patient (minutes): 12 Provider Statement: I spent 100% of the Face to Face Visit with the patient with greater than 50% spent counseling the patient and coordination of care.
== END 2023-02-20 16:05 | disposition home or self-care (01) ==
LOC: SC 16:04
PROVIDERS: ATTEND Nurse Practitioner Family
DX: G47.33 Obstructive sleep apnea (adult) (pediatric) (principal); E66.9 Obesity, unspecified; Z68.38 Body mass index [BMI] 38.0-38.9, adult
CPT/HCPCS: 99212

== ENCOUNTER 2023-03-02 07:39 | Outpatient (CLI) | payer BC ==
[2023-03-02 12:34] LABS: BASOPHILS # (AUTO) 0.1 10^3/uL (0.0-0.1); BASOPHILS % (AUTO) 1.2 %; EOSINOPHILS # (AUTO) 0.4 10^3/uL (0.0-0.7); EOSINOPHILS % (AUTO) 5.8 %; HCT - HEMATOCRIT 41.7 % (37.0-47.0); HGB - HEMOGLOBIN 13.4 g/dL (12.0-16.0); LYMPHOCYTES # (AUTO) 2.1 10^3/uL (1.5-3.5); LYMPHOCYTES % (AUTO) 30.9 %; MEAN CORPUSCULAR HEMOGLOBIN 30.9 pg (27.0-31.0); MEAN CORPUSCULAR HGB CONC 32.1 g/dL (32.0-36.0); MEAN CORPUSCULAR VOLUME 96.1 fL (81.0-99.0); MEAN PLATELET VOLUME 9.8 fL (7.9-10.8); MONOCYTES # (AUTO) 0.4 10^3/uL (0.0-1.0); MONOCYTES % (AUTO) 5.8 %; NEUTROPHILS # (AUTO) 3.9 10^3/uL (1.5-6.6); NEUTROPHILS % (AUTO) 56.2 %; PLT - PLATELET COUNT 255 10^3/uL (130-450); RED BLOOD COUNT 4.34 10^6/uL (4.20-5.40); RED CELL DISTRIBUTION WIDTH 12.5 % (12.0-15.0); WHITE BLOOD COUNT 6.9 x10^3/uL (4.8-10.8)
[2023-03-02 13:31] LABS: ALBUMIN/GLOBULIN RATIO 1.3 (1.0-2.2); ALKALINE PHOSPHATASE 87 IU/L (42-121); ALT ALANINE AMINOTRANSFERASE 39 IU/L (10-60); AST ASPARTATE AMINOTRANSFERASE 37 IU/L (10-42); BILIRUBIN,TOTAL 0.4 mg/dL (0.2-1.0); BUN - BLOOD UREA NITROGEN 11 mg/dL (6-20); CALCIUM 9.1 mg/dL (8.5-10.3); CARBON DIOXIDE - CO2 26 mmol/L (21-32); CHLORIDE 106 mmol/L (101-111); CHOL/HDL RATIO 4.1 (<4.4); CHOLESTEROL 153 mg/dL; CREATININE 0.9 mg/dL (0.4-1.0); GFR - MDRD 67 (>89); GLUCOSE 135 mg/dL (70-100); HDL CHOLESTEROL 37 mg/dL; LDL CHOLESTEROL,CALCULATED 87 mg/dL; LDL/HDL RATIO 2.4 (<4.4); POTASSIUM 3.8 mmol/L (3.5-5.0); SODIUM 136 mmol/L (135-145); TOTAL PROTEIN 7.1 g/dL (6.7-8.2); TRIGLYCERIDES 144 mg/dL; VLDL CHOLESTEROL 29 mg/dL
[2023-03-02 13:42] LABS: ESTIMATED AVERAGE GLUCOSE 134 mg/dL (70-100); HEMOGLOBIN A1c% 6.3 % (4.27-6.07)
[2023-03-02 13:57] LABS: THYROID STIMULATING HORMONE 2.06 uIU/mL (0.34-5.60)
[2023-03-02 14:01] LABS: FREE T4 (FREE THYROXINE) 1.15 ng/dL (0.58-1.64)
[2023-03-02 15:05] LABS: CREATININE,URINE 290.9 mg/dL; MICROALBUM/CREATININE RATIO,UR 4.1 ug/mg (<30.0); MICROALBUMIN,URINE 1.2 mg/dL (0-300.0)
== END 2023-03-02 07:40 | disposition home or self-care (01) ==
LOC: LAB.N 07:39
PROVIDERS: ATTEND Nurse Practitioner
DX: I10 Essential (primary) hypertension (principal); E78.5 Hyperlipidemia, unspecified; E11.9 Type 2 diabetes mellitus without complications; E03.9 Hypothyroidism, unspecified
CPT/HCPCS: 36415; 80053; 80061; 82043; 82570; 83036; 83721; 84439; 84443; 85025

== ENCOUNTER 2023-04-28 15:57 | Outpatient (CLI) | payer BC ==
--- NOTE | 2023-04-28 16:18 | Sleep Patient Instructions ---
Sleep Center Visit Summary - Patient Visit Information Reason for Visit: Three month followup for CPAP therapy - Patient Instructions Additional Instructions: You were here for follow up of CPAP therapy. You will be continued on CPAP therapy with pressure at 10-12 cmH2O. I have written for a mask fitting for a full face mask. You should follow up with sleep care in 6 months. You may contact us sooner for any questions or concerns. - Clinic Information Contact: [facility] [address] [place] [id number] [email or web address] T: [phone]
--- NOTE | 2023-04-28 16:21 | SLEEP CARE CONSULTATION ---
Information from patient questionnaire entered by Russell Sheriff. I have reviewed and concur with the information entered by Russell Sheriff. This document represents the service I personally performed and the decisions made by me, Mami Garzon ARNP. History of Present Illness Service Date and Time: 04/28/2023 1557 Previous diagnosis: Mild, Obstructive Sleep Apnea-Hypopnea Syndrome AHI: 9.4 Reason for follow up: other (3 MONTH F/U ) Equipment type: CPAP (RESMED Airsense 10, s/u 10/2022 SD CARD NEEDED FOR DOWNLOAD AND PRESSURE CHANGES) Equipment obtained from: Other ([facility]; getting supplies as needed) Mask style: Nasal pillows Backup mask available: Yes (old mask) Last cushion change: 2 months Prior sleep studies: No Type of Sleep Study: Home sleep study (COMPLETED 09/16/2022) HPI additional information: AMBER BANKS was diagnosed to have mild, AHI 9.4, obstructive sleep apnea- hypopnea syndrome and returned today for CPAP therapy three month follow-up. Sleep Study - Results Type of Sleep Study: Home sleep study (COMPLETED 09/16/2022) Prior sleep studies: No CPAP Compliance Data - Data Reviewed with Patient Average duration of nightly device use: 5 hours 53 minutes Compliance rate %: 79 (85/90 days used) Current pressure setting (cmH2O): 10-12 Average residual AHI: 1.2 Central apnea: 0.3 Obstructive apnea: 0.4 Average large leak: 5.6 lpm Subjective Missed days of use due to: reports: mask issues (blister from mask cushion) Patient concerns: reports: mask discomfort (getting sores on inside of nose and now outside). denies: aerophagia, air blowing in eyes, mask leak noise, condensation in mask/hose, nasal congestion, dry mouth, nose, throat, epistaxis Observed to snore while using device: No Current pressure setting perceived as: comfortable On therapy, patient: reports: other (not feeling improvement overall since starting CPAP). denies: drowsiness while driving Initial [place] Sleepiness Scale score: 3 (08/14/22) Current [place] Sleepiness Scale score: 7 () Allergies and Home Medications Known drug allergies: Yes (salmon oil) Drug allergies reviewed: Yes Home medication list reviewed: Yes (Jardiance and Lamictal; no longer taking Gabapentin) Allergy and home medication list: Allergies salmon oil Allergy (Verified 04/27/23 10:19) Unknown Review of Systems Review of systems same as previous: Yes (no changes) Physical Exam Vital signs obtained and entered by: RUSSELL Paris MA Blood Pressure: 118/72 (LEFT ARM) Cuff size: long Heart Rate: 91 O2 Saturation: 92 Height: 5 ft 6 in Weight: 228 lb 12.8 oz Weight change since last visit: 7 lb loss Body Mass Index: 36.9 BMI Classification: Obese Impression and Plan 1. Obstructive Sleep Apnea-Hypopnea Syndrome, mild, with good treatment compliance and good apnea control. She has been using the nasal pillows mask cushion. She does wash it every day but is getting increasing "blisters" or sores on the inside of her nose and some on the outside of her nose. She thinks she would like to try a fullface mask. She tried a nasal cushion that someone lended her but did not like it. I will write for a mask fitting for a fullface mask. We will follow-up with her in about 6 months. Patient's apnea severity and rationale for treatment to reduce apnea, improve sleep quality and reduce cardiovascular and cerebrovascular events was reviewed. I also reviewed the benefit of consistent device use of CPAP for hypertension, diabetes, depression and anxiety. 2. Obesity, unspecified. Currently patients BMI is 36.9. Obesity increases the risk of apnea, CPAP pressure requirements and overall health risks especially cardiovascular and diabetes. Thus patient is advised to try to lose weight. * Continue auto CPAP pressure at 10-12 cmH2O * Mask fitting for a full face mask * Notify me if snoring with mask or feeling that the pressure is too much or too little * Attempt to lose weight * Call this office if any problems using CPAP * Return for follow up in 6 months, or sooner if concerns arise Counseling Topics: Spare mask, Weight loss health impact Visit Type: In Office Time Spent with Patient (minutes): 16 Provider Statement: I spent 100% of the Face to Face Visit with the patient with greater than 50% spent counseling the patient and coordination of care.
[2023-04-28 16:41] VITALS: BP 118/72
== END 2023-04-28 15:58 | disposition home or self-care (01) ==
LOC: SC 15:57
PROVIDERS: ATTEND Nurse Practitioner Family
DX: G47.33 Obstructive sleep apnea (adult) (pediatric) (principal); E66.9 Obesity, unspecified; Z68.36 Body mass index [BMI] 36.0-36.9, adult
CPT/HCPCS: 99212

== ENCOUNTER 2023-05-29 10:06 | Outpatient (CLI) | payer BC ==
[2023-05-29 13:38] LABS: ESTIMATED AVERAGE GLUCOSE 131 mg/dL (70-100); HEMOGLOBIN A1c% 6.2 % (4.27-6.07)
== END 2023-05-29 10:07 | disposition home or self-care (01) ==
LOC: LAB.N 10:06
PROVIDERS: ATTEND Nurse Practitioner
DX: E11.9 Type 2 diabetes mellitus without complications (principal)
CPT/HCPCS: 36415; 83036

== ENCOUNTER 2023-07-15 08:00 | Outpatient (CLI) | payer BC ==
[2023-07-15 20:13] LABS: BACTERIAL VAGINOSIS DNA POSITIVE (NEGATIVE); CANDIDA GLABRATA DNA NEGATIVE (NEGATIVE); CANDIDA GROUP DNA NEGATIVE (NEGATIVE); CANDIDA KRUSEI DNA NEGATIVE (NEGATIVE); TRICHOMONAS VAGINALIS DNA NEGATIVE (NEGATIVE)
== END 2023-07-15 23:59 | disposition home or self-care (01) ==
LOC: LAB.WCP 08:00
PROVIDERS: ATTEND Family Medicine
DX: N89.8 Other specified noninflammatory disorders of vagina (principal)
CPT/HCPCS: 81514

== ENCOUNTER 2023-07-28 11:00 | Outpatient (CLI) | payer BC ==
[2023-07-28 21:54] LABS: BACTERIAL VAGINOSIS DNA NEGATIVE (NEGATIVE); CANDIDA GLABRATA DNA NEGATIVE (NEGATIVE); CANDIDA GROUP DNA POSITIVE (NEGATIVE); CANDIDA KRUSEI DNA NEGATIVE (NEGATIVE); TRICHOMONAS VAGINALIS DNA NEGATIVE (NEGATIVE)
== END 2023-07-28 11:15 | disposition home or self-care (01) ==
LOC: LAB.N 11:00
PROVIDERS: ATTEND Nurse Practitioner
DX: N89.8 Other specified noninflammatory disorders of vagina (principal)
CPT/HCPCS: 81514

== ENCOUNTER 2023-09-21 10:41 | Outpatient (CLI) | payer BC ==
[2023-09-21 21:57] LABS: ESTIMATED AVERAGE GLUCOSE 143 mg/dL (70-100); HEMOGLOBIN A1c% 6.6 % (4.27-6.07)
== END 2023-09-21 10:42 | disposition home or self-care (01) ==
LOC: LAB.N 10:41
PROVIDERS: ATTEND Nurse Practitioner
DX: E11.9 Type 2 diabetes mellitus without complications (principal); E55.9 Vitamin D deficiency, unspecified
CPT/HCPCS: 36415; 82306; 83036

== ENCOUNTER 2024-03-09 10:00 | Outpatient (CLI) | payer OTHER ==
[2024-03-09 11:49] LABS: BASOPHILS # (AUTO) 0.1 10^3/uL (0.0-0.1); BASOPHILS % (AUTO) 0.8 %; EOSINOPHILS # (AUTO) 0.2 10^3/uL (0.0-0.7); EOSINOPHILS % (AUTO) 2.9 %; HCT - HEMATOCRIT 47.7 % (37.0-47.0); HGB - HEMOGLOBIN 15.4 g/dL (12.0-16.0); LYMPHOCYTES # (AUTO) 2.2 10^3/uL (1.5-3.5); LYMPHOCYTES % (AUTO) 29.3 %; MEAN CORPUSCULAR HEMOGLOBIN 30.4 pg (27.0-31.0); MEAN CORPUSCULAR HGB CONC 32.3 g/dL (32.0-36.0); MEAN CORPUSCULAR VOLUME 94.3 fL (81.0-99.0); MEAN PLATELET VOLUME 9.5 fL (7.9-10.8); MONOCYTES # (AUTO) 0.4 10^3/uL (0.0-1.0); MONOCYTES % (AUTO) 5.5 %; NEUTROPHILS # (AUTO) 4.6 10^3/uL (1.5-6.6); PLT - PLATELET COUNT 274 10^3/uL (130-450); RED BLOOD COUNT 5.06 10^6/uL (4.20-5.40); RED CELL DISTRIBUTION WIDTH 13.2 % (12.0-15.0); WHITE BLOOD COUNT 7.5 x10^3/uL (4.8-10.8)
[2024-03-09 12:13] LABS: ALBUMIN 4.2 g/dL (3.2-5.5); ALBUMIN/GLOBULIN RATIO 1.3 (1.0-2.2); ALKALINE PHOSPHATASE 89 IU/L (42-121); ALT ALANINE AMINOTRANSFERASE 26 IU/L (10-60); AST ASPARTATE AMINOTRANSFERASE 25 IU/L (10-42); BILIRUBIN,TOTAL 0.5 mg/dL (0.2-1.0); BUN - BLOOD UREA NITROGEN 11 mg/dL (6-20); CALCIUM 9.9 mg/dL (8.5-10.3); CARBON DIOXIDE - CO2 26 mmol/L (21-32); CHLORIDE 105 mmol/L (101-111); CHOL/HDL RATIO 6.1 (<4.4); CHOLESTEROL 257 mg/dL; CREATININE 0.8 mg/dL (0.6-1.3); GFR - MDRD 77 (>89); GLUCOSE 131 mg/dL (74-104); HDL CHOLESTEROL 42 mg/dL; LDL CHOLESTEROL,CALCULATED 170 mg/dL; POTASSIUM 3.9 mmol/L (3.5-4.5); SODIUM 137 mmol/L (135-145); TOTAL PROTEIN 7.4 g/dL (6.4-8.9); TRIGLYCERIDES 225 mg/dL (48-352); VLDL CHOLESTEROL 45 mg/dL
[2024-03-09 12:23] LABS: MICROALBUM/CREATININE RATIO,UR 17.5 ug/mg (<30.0); MICROALBUMIN,URINE 4.6 mg/dL
[2024-03-09 12:28] LABS: THYROID STIMULATING HORMONE 8.92 uIU/mL (0.34-5.60)
[2024-03-09 14:06] LABS: ESTIMATED AVERAGE GLUCOSE 131 mg/dL (70-100); HEMOGLOBIN A1c% 6.2 % (4.27-6.07)
== END 2024-03-09 10:01 | disposition home or self-care (01) ==
LOC: LAB.N 10:00
PROVIDERS: ATTEND Nurse Practitioner
DX: I10 Essential (primary) hypertension (principal); E78.5 Hyperlipidemia, unspecified; E11.9 Type 2 diabetes mellitus without complications; E03.9 Hypothyroidism, unspecified
CPT/HCPCS: 36415; 80053; 80061; 82043; 82570; 83036; 83721; 84439; 84443; 85025

== ENCOUNTER 2024-07-05 08:00 | Outpatient (CLI) | payer OTHER ==
[2024-07-05 18:54] LABS: BILIRUBIN,URINE NEGATIVE (NEGATIVE); GLUCOSE, URINE (UA) NEGATIVE (NEGATIVE); KETONES,URINE (UA) NEGATIVE (NEGATIVE); LEUKOCYTE ESTERASE, URINE NEGATIVE (NEGATIVE); NITRITE,URINE NEGATIVE (NEGATIVE); OCCULT BLOOD,URINE NEGATIVE (NEGATIVE); PROTEIN,URINE NEGATIVE (NEGATIVE); UROBILINOGEN,URINE 1 (NORMAL) E.U./dL (NORMAL)
[2024-07-05 19:02] LABS: CLARITY,URINE CLEAR (CLEAR)
[2024-07-05 19:28] LABS: RBC,URINE None Seen /HPF (0-5); WBC,URINE 0-3 /HPF (0-5)
[2024-07-05 19:29] LABS: BACTERIA,URINE None Seen /HPF (None Seen); SQUAMOUS EPITHELIAL CELL,UR NONE SEEN (<= Few)
== END 2024-07-05 23:59 | disposition home or self-care (01) ==
LOC: LAB.WCP 08:00
PROVIDERS: ATTEND Physician Assistant
DX: R10.2 Pelvic and perineal pain (principal)
CPT/HCPCS: 81001; 87086